=== PATIENT | male | born 1955 | race Caucasian/White ===

== ENCOUNTER 2025-05-11 11:54 | Day surgery (SDC) | payer MEDICARE, OTHER, SELFPAY ==
--- NOTE | 2025-05-11 | PATH_ITS ---
[facility] Accession Number: [id number] No. of containers..01 Tissue . 01 Material submitted: . colon - SIGMOID . 01 Clinical history: . FOR COLITIS . 01 Diagnosis: SIGMOID: Colonic mucosa with ulcer. No dysplasia, malignancy, granulomas, or infectious organisms identified. See comment. . Specimen Comments: The histologic features raise a differential including drug-induced ulceration (NSAIDs, etc), infectious etiologies, or ischemia, among other possibilities. If there is clinical evidence of a more diffuse process, inflammatory bowel disease enters the differential. Clinical correlation is needed for further evaluation. [facility] 05/24/2025 1323 Local . 01 Electronically signed: . Cedrick Allen MD, Pathologist NPI- [id number] . 01 Gross description: . Received one formalin-filled container, labeled with the patient's name and colon sig. The specimen consists of multiple fragments of san soft tissue which range in size from less than 0.1 cm to 0.8 x 0.3 x 0.3 cm. All fragments are totally submitted in one cassette. ([id number]) /[facility] 05/24/2025 1323 Local . 01 Microscopic: . SIGMOID: No viral cytopathic effect is seen, either by H/E or with CMV immunostain*. The controls stain as expected. . * This test was developed and the performance characteristics were validated by [facility]. It has not been cleared or approved by the Food and Drug Administration. . 01 Pathologist provided ICD-10: K63.3 . 01 CPT . 579089, [id number] Specimen Comment: A courtesy copy of this report has been sent to [facility] Performed at: [address] [address], [place], [place] [id number] MD Cedrick Allen MD Phone: [phone]
--- NOTE | 2025-05-11 06:48 | PM.HP.IH.1 ---
History of Present Illness History of Present Illness Date Patient Seen: 05/11/25 Time Patient Seen: 06:48 Chief complaint: Colonoscopy Narrative: 69yo M presents for screening colonoscopy today. [facility] Medical History (Updated 05/11/25 @ 06:49 by Burak Loaiza MD) Colon polyps (08/07/21) Melanoma (07/19/21) Dupuytren's contracture of left hand (08/27/21) Surgical History (Updated 11/25/24 @ 07:16 by Irasema Hurt MA) H/O inguinal hernia repair (10/03/99) History of hernia repair (09/06/99) Family History (Updated 11/25/24 @ 07:17 by Irasema Hurt MA) Father Heart attack Pancreatic cancer Mother Dementia Hypertension Social History (Updated 11/25/24 @ 07:18 by Irasema Hurt MA) marital status: number of children: 3 household members: spouse housing: house pets and animals: Yes education level: master's degree occupational status: previously employed current occupational exposures/hazards: No 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, 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 ignacia/hinduism: Sabianist special ignacia needs: No travel history: recent leisure activities: exercise, fishing and reading other: Hiking, working and landscaping our [employer] [place], [employer] member 2-3 times a week seatbelt use: always helmet use: Yes water heater temp set < 120 deg: Yes working smoke detector in home: Yes fire extinguisher in home: Yes carbon monox detector in home: Yes do you feel safe at home: Yes second hand exposure: No alcohol intake: current substance use type: does not use during the past year weight has: remained stable well-balanced diet: daily or most days daily servings fruits/ve-4 caffeine: Yes (2 cups most mornings) eating out: 1-3 times/week Type(s) of exercise: walking, regular exercise, weight lifting and resistance training frequency: 3-4 times per week duration: 45-60 minutes/day Meds Home Medications and Allergies Home Medications ?Medication ?Instructions ?Recorded ?Confirmed ?Type escitalopram oxalate 10 mg tablet 10 mg PO DAILY Anxiety #90 tabs 03/15/25 Rx sodium,potassium,mag sulfates 17.5 See Rx Instructions PO .COMPLEX 04/06/25 Rx gram-3.13 gram-1.6 gram oral soln #354 mL (Suprep Bowel Prep Kit) Allergies Allergy/AdvReac Type Severity Reaction Status Date / Time grass pollen Allergy Mild Sneezing Verified 11/25/24 07:13 Exam Narrative Exam Narrative: Const General: healthy appearing, comfortable and no acute distress Orientation: alert and oriented x3 HENMT Ears: hearing grossly normal bilaterally Eyes Visual Choudhary: normal visual choudhary by confrontation Conjunctivae: conjunctivae normal Sclera: sclerae normal EOM: EOM intact bilaterally Resp Effort & Inspection: normal respiratory effort and able to speak in complete sentences Cardio Rate: regular rate GI Palpation: soft (NT) Extrem General: no pedal edema and no calf tenderness Assessment & Plan Assessment and plan (1) Encounter for screening colonoscopy: Status: Acute Plan Plan screening colonoscopy, possible biopsy. The risks, benefits and options regarding the procedure were explained to the patient in detail. Risk discussion included but not limited to: bleeding, perforation, missed lesion, unable to reach cecum. The patient was encouraged to ask questions and they were answered to their satisfaction. The patient understands and is agreeable to proceed. Time-Based Coding :: [TOTAL MINUTES] spent with patient and on the chart (including review of chart, obtaining history, exam, reviewing outside data, placing orders, documenting exam and treatment plan, and counseling patient) on [DATE]. [employer] Document charge(s): Yes Charge Codes Inpatient/observation care including admit and discharge same day: [id number]
[2025-05-11 12:12] VITALS: BP 132/81; PULSE 62; RESP 16; TEMP 36.7; O2SAT 97
[2025-05-11] MEDS: LACTATED RINGERS 1,000 ML 84 ML IV (12:21)
[2025-05-11 13:57] VITALS: BP 112/70; PULSE 64; RESP 16; TEMP 36.2; O2SAT 98
--- NOTE | 2025-05-11 13:57 | P.OP.COLON_ITS ---
Operative Date/Time/Diagnoses Date of procedure: 05/11/25 Time of procedure: 13:57 Pre-op diagnosis: Screening colonoscopy Post-op diagnosis: other (sigmoid colitis) Procedure & Clinicians Study performed: Screening colonoscopy with biopsy Same procedure(s) as scheduled: Yes Indications: 69yo M, screening colonoscopy Surgeon: Burak Loaiza Anesthesia Type: MAC +/- Procedure Notes SCOAP/Timeout: Performed Procedure in detail: Colonoscopy Patient placed in left lateral recumbent position. Time out was performed. Procedural sedation was administered by anesthesia. Examination began with a thorough inspection of the perianal area. There was no evidence of fissures, fistulae, external hemorrhoids or cutaneous malignancy. The colonoscope was then placed into the rectum and the lumen was insufflated with carbon dioxide. The scope was carefully advanced forward. Ultimately the cecum was intubated and confirmed by identification of the ileocecal valve, the appendiceal orifice and the confluence of the taenia. The scope was then slowly withdrawn examining the colon thoroughly in all directions. In the rectum, retroflexion of the scope was performed for inspection of the distal rectum and anal canal. ?Significant colonoscopy findings: ?1. Quality of the preparation-good, [place] 2-3, improved with irrigat ion/suction ?2. Sigmoid colitis on one sidewall only, no ulcerations, biopsied 3. No polyps Scope withdrawal time: 27 minutes Findings: other findings (colitis) Specimen(s): other (sigmoid colitis biopsies) Estimated Blood Loss: 5 Complications: none Impression: Sigmoid colitis, biopsies pending Post-procedure Recommendations: Will call with biopsy results Plan for aftercare: PACU then home Follow up: as needed Disposition: PACU
[2025-05-11 14:04] VITALS: BP 108/71; PULSE 48; RESP 16; TEMP 36.2; O2SAT 98
[2025-05-11 14:09] VITALS: BP 120/70; PULSE 54; RESP 16; TEMP 36.2; O2SAT 100
[2025-05-11 14:23] VITALS: BP 126/77; PULSE 78; RESP 16; TEMP 36.2; O2SAT 98
== END 2025-05-11 14:35 | disposition home or self-care (01) ==
PROVIDERS: PCP Family Medicine; Referring Provider Surgery; Visit Provider Surgery
PROC: 0DJD8ZZ Inspection of Lower Intestinal Tract, Via Natural or Artificial Opening Endoscopic (ICD-10-PCS; CPT 45378; principal; 2025-05-11 13:00)
DX: Z12.11 Encounter for screening for malignant neoplasm of colon (principal); K51.80 Other ulcerative colitis without complications; Z86.0100 Personal history of colon polyps, unspecified
CPT/HCPCS: 45380; J2704; J7120